=== PATIENT | male | born 1995 | race Caucasian/White ===

== ENCOUNTER 2017-01-23 07:37 | Emergency (ER) | payer BC, OTHER ==
[~2017-01-23] VITALS: Ht 160 cm; Wt 50.5 kg
[2017-01-23 07:43] VITALS: Ht 160 cm; Wt 50.5 kg
--- NOTE | 2017-01-23 07:57 | EMERGENCY ROOM VISIT NOTE ---
History Report prepared by Altaf: Gilbert Figueroa Under the Supervision of: Dr. Wayne Fajardo M.D. First contact with patient: 07:37 Stated Complaint: MENTAL HEALTH History of Present Illness The patient is a 21 year old who presents to the Emergency Room via [place] [employer] for a mental health evaluation. His mental health has been declining over the past three weeks. The patient admits that he has had a significant history of anxiety and depression for the majority of his life. He made note of multiple stresses that he is currently experiencing that have worsened his anxiety. The patient states that his sister recently moved to [place] which focused the attention of his parents solely on him. 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. He decided not to attend his final exams for his classes, which resulted in him not graduating from school as scheduled. As of the past three weeks, the patient has secluded himself to his apartment. The patient states that he was initially denied intervention by [facility] at [facility], but was referred to Dr. Villalpando in [place] for psychiatric treatment, who did start him on medication. He is currently denying any suicidal or homicidal ideation and denies making any attempts to hurt himself. Source of History: patient, family Onset: 3 weeks Position: other (Psych) Quality: other (Mental Health Eval) Timing: worsening Note: Denies Suicidal/homicidal ideation. Review of Systems See HPI for pertinent positives & negatives. A total of 10 systems reviewed and were otherwise negative. Past Medical & Surgical Medical Problems: (1) Anxiety (2) Depression Anxiety Depression Old medical records were reviewed. Nurse's notes were reviewed and I agree with. Family History FH: bipolar disorder Social History Drug Use: none Marital Status: single Housing Status: lives alone Occupation Status: [employer] student Current/Historical Medications Scheduled Acyclovir (Zovirax), Unknown Dose PO 5 TIMES DAILY Amphetamine-Dextroamphetamine 10MG (Adderall 10MG), 10-30 MG PO DAILY Biotin (Biotin), 1 TAB PO DAILY Cholecalciferol (Vitamin D3), 1 CAP PO DAILY Multivitamin (Multivitamin), 1 TAB PO DAILY Allergies Coded Allergies: No Known Allergies (Unverified , 01/23/17) Physical Exam Vital Signs Date Time Temp Pulse Resp B/P (MAP) Pulse Ox O2 Delivery O2 Flow Rate FiO2 01/23/17 13:30 37.0 124 22 156/98 98 Room Air 01/23/17 11:30 126 24 148/88 98 01/23/17 09:05 75 20 128/75 100 Room Air 01/23/17 07:43 37.0 114 22 130/103 99 Room Air Physical Exam General: Well developed well nourished in no acute distress, breathing comfortably on room air. Normal speech HEENT: Normal cephalic atraumatic. Pupils are equal round and reactive to light. Extraocular movements are intact. Oropharynx is pink with moist mucous membranes. No swelling of the mouth lips or tongue. Neck: Supple with a midline trachea. No meningeal signs or stiffness, no JVD or bruits. No Stridor. Chest: Clear to auscultation bilaterally. No wheezes or rhonchi. No increased work of breathing. Heart: regular rate and rhythm. Abdomen: Soft nontender, nondistended without rebound guarding or rigidity. Extremities: No cyanosis clubbing or edema. No calf tenderness or assymetry Spine/Back. Non tender to palpation. No CVA tenderness Skin: Good turgor without rashes. Neurologic exam: Cranial nerves two through 12 are intact. Motor and sensation are intact and symmetrical throughout. PSYCH: Denies suicidal or homicidal ideation. Rapid speech. He is paranoid. Medical Decision & Procedures Laboratory Results 01/23/17 08:07 Red Blood Count 5.52, Mean Corpuscular Volume 87.3, Mean Corpuscular Hemoglobin 32.4, Mean Corpuscular Hemoglobin Concent 37.1, Mean Platelet Volume 10.6, Neutrophils (%) (Auto) 37.3, Lymphocytes (%) (Auto) 47.2, Monocytes (%) (Auto) 10.8, Eosinophils (%) (Auto) 3.7, Basophils (%) (Auto) 0.8, Neutrophils # (Auto ) 2.45, Lymphocytes # (Auto) 3.09, Monocytes # (Auto) 0.71, Eosinophils # (Auto ) 0.24, Basophils # (Auto) 0.05 01/23/17 08:07 Test 01/23/17 08:02 01/23/17 08:07 Urine Opiates Screen NEG (NEG) Urine Methadone, Qualitative NEG (NEG) Urine Barbiturates NEG (NEG) Urine Phencyclidine (PCP) Level NEG (NEG) Ur Amphetamine/Methamphetamine POS (NEG) MDMA (Ecstasy) Screen NEG (NEG) Urine Benzodiazepines Screen NEG (NEG) Urine Cocaine Metabolite NEG (NEG) Urine Marijuana (THC) POS (NEG) White Blood Count 6.55 K/uL (4.8-10.8) Red Blood Count 5.52 M/uL (4.7-6.1) Hemoglobin 17.9 g/dL (14.0-18.0) Hematocrit 48.2 % (42-52) Mean Corpuscular Volume 87.3 fL (80-100) Mean Corpuscular Hemoglobin 32.4 pg (25-34) Mean Corpuscular Hemoglobin Concent 37.1 g/dl (32-36) Platelet Count 183 K/uL (130-400) Mean Platelet Volume 10.6 fL (7.4-10.4) Neutrophils (%) (Auto) 37.3 % Lymphocytes (%) (Auto) 47.2 % Monocytes (%) (Auto) 10.8 % Eosinophils (%) (Auto) 3.7 % Basophils (%) (Auto) 0.8 % Neutrophils # (Auto) 2.45 K/uL (1.4-6.5) Lymphocytes # (Auto) 3.09 K/uL (1.2-3.4) Monocytes # (Auto) 0.71 K/uL (0.11-0.59) Eosinophils # (Auto) 0.24 K/uL (0-0.5) Basophils # (Auto) 0.05 K/uL (0-0.2) RDW Standard Deviation 42.0 fL (36.4-46.3) RDW Coefficient of Variation 13.0 % (11.5-14.5) Immature Granulocyte % (Auto) 0.2 % Immature Granulocyte # (Auto) 0.01 K/uL (0.00-0.02) Anion Gap 7.0 mmol/L (3-11) Est Creatinine Clear Calc Drug Dose 63.7 ml/min Estimated GFR () 89.8 Estimated GFR (Non- 77.5 BUN/Creatinine Ratio 6.5 (10-20) Calcium Level 9.5 mg/dl (8.5-10.1) Total Bilirubin 1.3 mg/dl (0.2-1) Direct Bilirubin 0.4 mg/dl (0-0.2) Aspartate Amino Transf (AST/SGOT) 22 U/L (15-37) Alanine Aminotransferase (ALT/SGPT) 24 U/L (12-78) Alkaline Phosphatase 71 U/L (45-117) Total Protein 7.7 gm/dl (6.4-8.2) Albumin 4.1 gm/dl (3.4-5.0) Lipase 108 U/L (73-393) Thyroid Stimulating Hormone (TSH) 2.810 uIu/ml (0.300-4.500) Salicylates Level < 1.7 mg/dl (2.8-20) Acetaminophen Level < 2 ug/ml (10-30) Ethyl Alcohol mg/dL < 3.0 mg/dl (0-3) Laboratory studies as stated above per my review. Medications Administered Medications (Trade) Dose Ordered Sig/Sabine Route Start Time Stop Time Status Last Admin Dose Admin Lorazepam (Ativan Tab) 1 mg NOW STAT SL 01/23/17 13:54 01/23/17 13:55 DC 01/23/17 14:17 1 MG ED Course 0737: Past medical records reviewed. The patient was evaluated in room A8, and a complete history and physical examination were performed. 1108: I discussed the case with the Psychiatric Laborer Landscape following her evaluation, we will consult Dr. Campoverde. 1140: The Laborer Landscape has discussed the case with Dr. Campoverde at this time, who feels the patient should have a 302 petition signed. 1300: I discussed the patient's situation with his parents at length. They state that they are concerned for their son's safety and agree to the 302 petition. The patient will be admitted to the hospital and a bed search for an inpatient psych facility will begin. 1431: I checked on the patient at this time. He is mildly agitated, but calm compared to earlier. I ordered PO Ativan. Medical Decision Medication Reconciliation: I attest that I have personally reviewed the patient' s current medication list. Blood Pressure Screening: Patient was found to have a slightly elevated blood pressure due to circumstances and anxiety. I do not believe that the patient requires hypertension monitoring. Differential Diagnosis includes: Depression, Anxiety, Toxicologic process, electrolyte or metabolic abnormality. This patient comes in as described above. He was placed in room A8. He was brought in under a 302 petition. He has been having erratic behavior and has been confining himself in his house for the last couple weeks. he's not been eating . he was normally a good student and do not go to finals. He did has had no suicidal or homicidal ideations. He got an argument about losing/ breaking his sanchez and has been unable to give keys to his apartment. The police have been out several times . he apparently called the landlord's office last night 88 times. Multiple blood testing was obtained and he was medically cleared. I talked his parents who arrive and they're very concerned about him. They've say that he has had a decline over the last several months and they' re worried about mental health process and worried about his safety. He recently started seeing a psychiatrist and was placed on Adderall for possible ADHD. It is possible the Adderall could be making him worse as at this point he seemed manic. He was evaluated by 3 S. as well as by Raya our continuous pillowcase cutter and we all agree as to the parents that he needs to be admitted for mental health treatment and safety. He definitely meets 302 criteria from the inability care standpoint. A 302 petition was signed off by myself. The patient has been somewhat agitated he was given Ativan 1 mg by mouth. He did take the Ativan and was sleeping after this. Currently we are trying to get him placed at the [facility] this is pending. The patient was signed out to Dr. Diehl at 4:10 PM. The patient is awaiting placement. Consults Time Called: 1108 Consulting Physician: cleat thrower Returned Call: 1108 I discussed the case with the Psychiatric Laborer Landscape following her evaluation , we will consult Dr. Campovedre. Impression Primary Impression: Manic episode Additional Impression: Involuntary commitment Scribe Attestation The scribe's documentation has been prepared under my direction and personally reviewed by me in its entirety. I confirm that the note above accurately reflects all work, treatment, procedures, and medical decision making performed by me. Departure Information Dispostion Mental Health Acute Care Problem Qualifiers
[2017-01-23 08:23] LABS: BASO % 0.8 %; BASO ABS # 0.05 K/uL (0-0.2); COMPLETE YES; EOS % 3.7 %; HEMATOCRIT 48.2 % (42-52); IG% 0.2 %; LYMPH % 47.2 %; LYMPH ABS # 3.09 K/uL (1.2-3.4); MEAN CELL VOLUME 87.3 fL (80-100); MEAN CORPUSCULAR HEMOGLOBIN 32.4 pg (25-34); MEAN CORPUSCULAR HGB CONC 37.1 g/dl (32-36); MEAN PLATELET VOLUME 10.6 fL (7.4-10.4); MONO % 10.8 %; NEUT % 37.3 %; PLATELET COUNT 183 K/uL (130-400); RED BLOOD COUNT 5.52 M/uL (4.7-6.1); WHITE BLOOD COUNT 6.55 K/uL (4.8-10.8)
[2017-01-23] MEDS ORDERED: MULT-506 PO (08:27)
[2017-01-23] MEDS ORDERED: AMPH10TA2 PO (08:27)
[2017-01-23] MEDS ORDERED: CHOL2000 PO (08:27)
[2017-01-23] MEDS ORDERED: ACYC1CAP8 PO (08:27)
[2017-01-23] MEDS ORDERED: BIOT1TAB5 PO (08:27)
[2017-01-23 08:40] LABS: BENZODIAZEPINE, URINE NEG (NEG); COCAINE,URINE NEG (NEG); PHENCYCLIDINE, URINE NEG (NEG)
[2017-01-23 08:41] LABS: BUN/CREATININE RATIO 6.5 (10-20); CALCIUM 9.5 mg/dl (8.5-10.1); CREATININE 1.3 mg/dl (0.60-1.40); POTASSIUM 3.7 mmol/L (3.5-5.1)
[2017-01-23 08:50] LABS: ACETAMINOPHEN < 2 ug/ml (10-30)
[2017-01-23 08:52] LABS: THYROID STIMULATING HORMONE 2.81 uIu/ml (0.300-4.500)
[2017-01-23 13:30] VITALS: BP 156/98; PULSE 124; TEMP 37
[2017-01-23] MEDS ORDERED: LORAZEPAM 1 MG TAB SL STA (13:54)
[2017-01-23 17:21] VITALS: O2SAT 98
== END 2017-01-23 17:22 ==
LOC: EDBD 07:37 → EDSEX 07:37 → C.EDA 07:39
DX: F30.9 Manic episode, unspecified (principal); F41.9 Anxiety disorder, unspecified; Z79.899 Other long term (current) drug therapy; Z81.8 Family history of other mental and behavioral disorders